=== PATIENT | female | born 1945 | race Caucasian/White ===

== ENCOUNTER 2022-01-20 11:46 | Day surgery (SDC) | payer MEDICARE, BC ==
[2022-01-20] MEDS ORDERED: Decadron 4 MG INJ IV ONE (11:47)
[2022-01-20] MEDS ORDERED: LIDOCAINE HCL 2% 100 MG/5 ML IJ ONE (11:47)
[2022-01-20] MEDS ORDERED: DIPRIVAN 200 MG/20 ML IV ONE (14:01)
--- NOTE | 2022-01-20 15:17 | XRAY ---
Indication: Left C2-C4 MBB. Intraoperative fluoroscopy provided for 30 seconds. 4 digital spot images submitted for interpretation demonstrates posterior needle tips projecting over the expected left C2-C4 nerve roots. Correlate with intraoperative findings/report.
[2022-01-20] MEDS ORDERED: Lactated Ringers 1,000 ML IV ONE (16:32)
--- NOTE | 2022-01-20 16:44 | XRAY ---
30 seconds of fluoroscopy was used in surgery for a left C2-C4 MBB.
== END 2022-01-20 14:14 | disposition home or self-care (01) ==
LOC: SDC-PAIN 11:46
PROVIDERS: ATTEND Psychiatry & Neurology Pain Medicine
DX: M47.812 Spondylosis without myelopathy or radiculopathy, cervical region (principal); Z79.899 Other long term (current) drug therapy
CPT/HCPCS: 64490; 64491; 72040; 77002; J1100; J2704